=== PATIENT | female | born 1955 | race Caucasian/White ===

== ENCOUNTER 2018-05-23 14:24 | Emergency (ER) | payer MEDICAID, OTHER ==
[~2018-05-23] VITALS: Wt 79.5 kg
[2018-05-23] MEDS ORDERED: morphine 4 MG/ML VIAL IV STA (15:09)
[2018-05-23] MEDS ORDERED: ONDANSETRON 4 MG INJ IV STA (15:09)
[2018-05-23] MEDS ORDERED: PHEN-538 PO (17:37)
[2018-05-23] MEDS ORDERED: NITR-58 PO (17:37)
[2018-05-23 18:05] VITALS: BP 125/78; PULSE 86; RESP 17
--- NOTE | 2018-05-23 18:49 | ERD ---
ER Documentation Chief Complaint Chief Complaint AFTER LIFTING SOMETHING 1 MONTH AGO, ABD PAIN N/V AND VAG BLEED NOTED. HPI Patient is a 62-year-old female with no medical problems who presents with abdominal pain. She said that it started 1 month ago after lifting something heavy at home. The pain radiates to her back. She had vaginal bleeding as well. The symptoms have been worsening. Upon review of old medical records mark benitez is the patient's first visit to the emergency department. She goes to a clinic for her primary care. ROS All systems reviewed and are negative except as per history of present illness. Medications Home Meds Active Scripts Phenazopyridine Hcl* (Pyridium*) 200 Mg Tab, 200 MG PO TID PRN for URINARY PAIN, #6 TAB Prov:YOKASTA CHRISTIAN MD 05/23/18 Nitrofurantoin Monohyd Macrocr* (Macrobid*) 100 Mg Capsr, 100 MG PO BID for 7 D ays, CAP Prov:YOKASTA CHRISTIAN MD 05/23/18 Allergies Allergies: Coded Allergies: No Known Allergy (Unverified , 05/23/18) PMhx/Soc Medical and Surgical Hx: pt denies Medical Hx, pt denies Surgical Hx Hx Alcohol Use: No Hx Substance Use: No Hx Tobacco Use: No Smoking Status: Unknown if ever smoked FmHx Family History: No diabetes Physical Exam Vitals Vital Signs Date Temp Pulse Resp B/P (MAP) Pulse Ox O2 O2 Flow FiO2 Time Delivery Rate 05/23/18 86 17 125/78 100 Room Air 18:05 (94) 05/23/18 93 17 163/76 100 Room Air 16:51 (105) 05/23/18 98.8 81 20 137/69 100 Room Air 15:45 (91) 05/23/18 99.5 99 20 170/91 98 14:29 (117) Physical Exam Const: No acute distress Head: Atraumatic Eyes: Normal Conjunctiva ENT: Normal External Ears, Nose and Mouth. Neck: Full range of motion. No meningismus. Resp: Clear to auscultation bilaterally Cardio: Regular rate and rhythm, no murmurs Abd: Soft, non tender, non distended. Normal bowel sounds Skin: No petechiae or rashes Back: No midline or flank tenderness Ext: No cyanosis, or edema Neur: Awake and alert Psych: Normal Mood and Affect Result Diagram: 05/23/18 1525 05/23/18 1525 Results 24 hrs Laboratory Tests Test 05/23/18 15:15 05/23/18 15:25 Urine Color YELLOW Urine Clarity SLIGHTLY CLOUDY Urine pH 5.0 Urine Specific [place] 1.015 Urine Ketones NEGATIVE mg/dL Urine Nitrite NEGATIVE mg/dL Urine Bilirubin NEGATIVE mg/dL Urine Urobilinogen NEGATIVE mg/dL Urine Leukocyte Esterase 1+ Raj/ul Urine Microscopic RBC 98 /HPF Urine Microscopic WBC 40 /HPF Urine Squamous Epithelial Cells FEW /HPF Urine Hemoglobin 3+ mg/dL Urine Glucose NEGATIVE mg/dL Urine Total Protein NEGATIVE mg/dl White Blood Count 9.6 10^3/ul Red Blood Count 4.83 10^6/ul Hemoglobin 14.7 g/dl Hematocrit 41.9 % Mean Corpuscular Volume 86.7 fl Mean Corpuscular Hemoglobin 30.4 pg Mean Corpuscular Hemoglobin Concent 35.1 g/dl Red Cell Distribution Width 13.9 % Platelet Count 278 10^3/UL Mean Platelet Volume 10.0 fl Immature Granulocytes % 0.400 % Neutrophils % 81.4 % Lymphocytes % 11.4 % Monocytes % 5.3 % Eosinophils % 1.1 % Basophils % 0.4 % Nucleated Red Blood Cells % 0.0 /100WBC Immature Granulocytes # 0.040 10^3/ul Neutrophils # 7.8 10^3/ul Lymphocytes # 1.1 10^3/ul Monocytes # 0.5 10^3/ul Eosinophils # 0.1 10^3/ul Basophils # 0.0 10^3/ul Nucleated Red Blood Cells # 0.0 10^3/ul Sodium Level 139 mmol/L Potassium Level 4.4 mmol/L Chloride Level 100 mmol/L Carbon Dioxide Level 28 mmol/L Anion Gap 11 Blood Urea Nitrogen 19 mg/dl Creatinine 0.70 mg/dl Est Glomerular Filtrat Rate mL/min > 60 mL/min Glucose Level 145 mg/dl Calcium Level 10.2 mg/dl Total Bilirubin 0.5 mg/dl Direct Bilirubin 0.00 mg/dl Indirect Bilirubin 0.5 mg/dl Aspartate Amino Transf (AST/SGOT) 38 IU/L Alanine Aminotransferase (ALT/SGPT) 37 IU/L Alkaline Phosphatase 93 IU/L Total Protein 8.3 g/dl Albumin 4.6 g/dl Globulin 3.70 g/dl Albumin/Globulin Ratio 1.24 Lipase 159 U/L Current Medications Medications Dose Sig/Carlos Start Time Status Last (Trade) Ordered Route PRN Stop Time Admin Dose Reason Admin Morphine 4 mg ONCE STAT 05/23/18 DC Sulfate IV 15:09 (morphine) 05/23/18 15:10 Ondansetron 4 mg ONCE STAT 05/23/18 DC HCl (Zofran IV 15:09 Inj) 05/23/18 15:10 Procedures/MDM CT abdomen pelvis read by radiology. Ultrasound of pelvis read by radiology. Patient is a 62-year-old female with no medical problems who presents with abdominal pain. She was found to have acute cystitis. There is no other sign of serious etiology. At this point I doubt appendicitis, cholecystitis, pancreatitis, or bowel obstruction. I believe outpatient management is appropriate. She will be treated with Macrobid and Pyridium. She can return for any worsening symptoms. The patient understands the plan and is okay for discharge at this time. Departure Diagnosis: Primary Impression: Cystitis Additional Impressions: Dysfunctional uterine bleeding Abdominal pain Abdominal location: generalized Qualified Codes: R10.84 - Generalized abdominal pain Condition: Fair Patient Instructions: Abdominal Pain, Cystitis Referrals: Your doctor Additional Instructions: Llame al doctor MAANA y ajit stephen LYRIC PARA DENTRO DE 1-2 PERSON.Dgale a la secretaria que nosotros le instruimos hacer esta lyric.Avise o llame si renteria c ondicin se empeora antes de la lyric. Regresa aqui si peor o no mejor. YOKASTA CHRISTIAN MD May 23, 2018 18:49
== END 2018-05-23 18:11 | disposition home or self-care (01) ==
LOC: E/R 14:24
DX: N30.90 Cystitis, unspecified without hematuria (principal); N93.8 Other specified abnormal uterine and vaginal bleeding
CPT/HCPCS: 74176; 76830; 76856; 80053; 81001; 83690; 85025; J2405; Z7502; J2270